=== PATIENT | male | born 1940 | race Hispanic/Latino ===

== ENCOUNTER 2017-10-04 06:58 | Day surgery (SDC) | payer OTHER ==
[2017-10-02 16:55] VITALS: BP 128/73
[2017-10-02 17:15] LABS: BASOPHILS % (AUTO) 0.4 % (0.0-5.0); EOSINOPHILS % (AUTO) 3.3 % (0.0-8.0); HEMATOCRIT 44.9 % (42-54); LYMPHOCYTES % (AUTO) 26.8 % (21.0-51.0); MEAN CORPUSCULAR HEMOGLOBIN 31.5 pg (27.0-33.0); MEAN CORPUSCULAR HGB CONC 34.3 g/dL (32.0-36.0); MEAN CORPUSCULAR VOLUME 91.9 fL (79-99); MONOCYTES % (AUTO) 9.3 % (3.0-13.0); NEUTROPHILS % (AUTO) 60.2 % (40.0-77.0); NUCLEATED RED BLOOD CELLS 0.1 % (0.0-0.19); PLATELET COUNT (AUTO) 162 K/uL (130-400); RED BLOOD CELL COUNT(AUTO) 4.89 MIL/uL (4.50-6.20); WHITE BLOOD COUNT (AUTO) 5.1 K/uL (4.8-10.8)
[2017-10-02 17:17] LABS: APPEARANCE,URINE Clear (CLEAR); BILIRUBIN,URINE Negative (NEGATIVE); COLOR,URINE Dark Yellow (YELLOW); GLUCOSE, URINE (UA) Negative (NEGATIVE); KETONES,URINE Negative (NEGATIVE); LEUKOCYTE ESTERASE ,URINE Small (NEGATIVE); NITRATE,URINE Negative (NEGATIVE); OCCULT BLOOD,URINE Negative (NEGATIVE); PH,URINE 5.5 (5.0-8.0); PROTEIN,URINE Negative (NEGATIVE)
[2017-10-02 17:22] LABS: CREATININE 1.2 mg/dL (0.5-1.5); POTASSIUM 4.3 mmol/L (3.5-5.1)
[2017-10-02 17:24] LABS: INR 1.05 (0.85-1.15)
[2017-10-02 18:02] LABS: BACTERIA,URINE Few /HPF (None Seen); RBC,URINE None Seen /HPF (0-1)
[~2017-10-04] VITALS: Ht 186.7 cm; Wt 91.0 kg
[2017-10-04] VITALS (16 sets, daily range): BP systolic 121–166; BP diastolic 64–97
[~2017-10-04 06:58] MED LIST: ASPI-1181 PO; CILO100T PO; CLOP75TA32 PO; ESOM20CA31 PO; GENTAMICIN 80 MG/NS 100 ML PB 100 ML IV PRN; ISOS30TA6 PO; LEVO75TA10 PO; METO25TA6 PO; RANO500T3 PO; ROSU5TAB11 PO; TAMS0.4C32 PO
[2017-10-04] MEDS ORDERED: SODIUM CHLORIDE 0.9% 1000ML 1,000 ML IV ONE (08:39)
[2017-10-04] MEDS: CEFTRIAXONE SODIUM 1 GM IVP PRN ×2 (09:46→10:01)
[2017-10-04] MEDS ORDERED: GLYCOPYRROLATE 0.2 MG/ML 5 ML VIAL ONE (09:50)
[2017-10-04] MEDS ORDERED: LIDOCAINE PF 2% 5ML ABBOJECT ONE (09:50)
[2017-10-04] MEDS ORDERED: DEXAMETHASONE SOD PHOSPHATE 10MG/ML 1ML VIAL ONE (09:50)
[2017-10-04] MEDS ORDERED: ONDANSETRON HCL 4 MG/2 ML VIAL ONE (09:50)
[2017-10-04] MEDS ORDERED: PROPOFOL 10 MG/ML 20ML VIAL IV ONE (09:50)
[2017-10-04] MEDS ORDERED: FENTANYL CITRATE PF 50 MCG/1 ML 2ML VIAL ONE ×2 (09:50→11:17)
[2017-10-04] MEDS ORDERED: NEOSTIGMINE 5MG/5ML SYR IV ONE (09:50)
[2017-10-04] MEDS ORDERED: MIDAZOLAM HCL 1 MG/ML 2ML VIAL ONE (09:50)
[2017-10-04] MEDS ORDERED: MEPERIDINE-PF 25 MG/ML SYG ONE (11:54)
[2017-10-04] MEDS ORDERED: OPIUM/BELLADONNA ALKALOIDS 1 EACH SUPP.RECT RC ONE (11:54)
== END 2017-10-04 14:00 | disposition home or self-care (01) ==
LOC: DAH 06:58
PROVIDERS: ATTEND Urology
DX: N40.1 Benign prostatic hyperplasia with lower urinary tract symptoms (principal); I25.10 Atherosclerotic heart disease of native coronary artery without angina pectoris; R31.9 Hematuria, unspecified; E78.5 Hyperlipidemia, unspecified; I10 Essential (primary) hypertension; E03.9 Hypothyroidism, unspecified; N35.9 Urethral stricture, unspecified; Z88.8 Allergy status to other drugs, medicaments and biological substances; R32 Unspecified urinary incontinence; K21.9 Gastro-esophageal reflux disease without esophagitis; Z95.5 Presence of coronary angioplasty implant and graft
CPT/HCPCS: 36415; 52648; 71045; 80048; 81001; 82948 ×2; 85025; 85610; 87088; 87186; 93005; A4218; A4354; A4358; J0696; J1100; J1580; J2001; J2175; J2250; J2405; J2704; J2710; J3010 ×2; J3490; J7030 ×2

== ENCOUNTER 2017-10-08 08:21 | Emergency (ER) | payer OTHER ==
[~2017-10-08 08:21] MED LIST changes: -ASPI-1181 PO; -CLOP75TA32 PO; -GENTAMICIN 80 MG/NS 100 ML PB 100 ML IV PRN
[2017-10-08 08:56] LABS: ABG BASE EXCESS -1.9 mmol/L (-2.0-3.0); ABG HCO3 21.4 mmol/L (21.0-28.0); ABG OXYGEN SATURATION 94.1 % (95.0-99.0); ABG PCO2 33 mmHg (35-48)
[2017-10-08 09:09] LABS: BASOPHILS % (AUTO) 0.3 % (0.0-5.0); EOSINOPHILS % (AUTO) 3.2 % (0.0-8.0); HEMATOCRIT 46.9 % (42-54); MEAN CORPUSCULAR HEMOGLOBIN 31.9 pg (27.0-33.0); MEAN CORPUSCULAR HGB CONC 34.3 g/dL (32.0-36.0); MEAN CORPUSCULAR VOLUME 92.8 fL (79-99); NEUTROPHILS % (AUTO) 69.5 % (40.0-77.0); PLATELET COUNT (AUTO) 139 K/uL (130-400); RED BLOOD CELL COUNT(AUTO) 5.05 MIL/uL (4.50-6.20); RED CELL DISTRIBUTION WIDTH 12.9 % (11.0-15.5); WHITE BLOOD COUNT (AUTO) 6.1 K/uL (4.8-10.8)
[2017-10-08 09:21] LABS: CREATININE 1.2 mg/dL (0.5-1.5)
[2017-10-08 09:23] LABS: APPEARANCE,URINE Cloudy (CLEAR); BILIRUBIN,URINE Negative (NEGATIVE); COLOR,URINE Orange (YELLOW); GLUCOSE, URINE (UA) Negative (NEGATIVE); KETONES,URINE Negative (NEGATIVE); LEUKOCYTE ESTERASE ,URINE Moderate (NEGATIVE); NITRATE,URINE Negative (NEGATIVE); OCCULT BLOOD,URINE Large (NEGATIVE); PH,URINE 6.5 (5.0-8.0); PROTEIN,URINE POS 2+ (NEGATIVE)
[2017-10-08 09:27] LABS: ALBUMIN 3.3 g/dL (3.5-5.0); BILIRUBIN,TOTAL 0.7 mg/dL (0.2-1.0); TOTAL PROTEIN, SERUM 6.7 g/dL (6.0-8.3)
[2017-10-08 09:40] LABS: RBC,URINE TNTC /HPF (0-1)
[2017-10-08 09:41] LABS: BACTERIA,URINE Rare /HPF (None Seen); SQUAMOUS EPITHELIAL CELL,UR Rare /HPF (0-2)
[2017-10-08] MEDS ORDERED: ACETAMINOPHEN 325 MG TAB ONE (09:47)
== END 2017-10-08 10:41 | disposition home or self-care (01) ==
LOC: EDH 08:21
DX: R41.82 Altered mental status, unspecified (principal); E11.9 Type 2 diabetes mellitus without complications; I10 Essential (primary) hypertension; I25.810 Atherosclerosis of coronary artery bypass graft(s) without angina pectoris; Z95.1 Presence of aortocoronary bypass graft; Z88.6 Allergy status to analgesic agent; Z98.890 Other specified postprocedural states
CPT/HCPCS: 36415; 36600; 70450; 80053; 81001; 82803; 84484; 85025; 93005

== ENCOUNTER → 2017-10-10 | Outpatient (CLI) | payer BC, MEDICARE, OTHER | END | disposition home or self-care (01) | LOC: SLP 16:23 | PROVIDERS: ATTEND Family Medicine | DX: R06.83 Snoring (principal); R53.83 Other fatigue; I10 Essential (primary) hypertension; E11.9 Type 2 diabetes mellitus without complications; K21.9 Gastro-esophageal reflux disease without esophagitis | CPT/HCPCS: 95810 ==

== ENCOUNTER → 2018-01-15 | Outpatient (CLI) | payer OTHER | END | disposition home or self-care (01) | LOC: SLP 20:34 | PROVIDERS: ATTEND Family Medicine | DX: G47.30 Sleep apnea, unspecified (principal) | CPT/HCPCS: 95811 ==

== ENCOUNTER 2018-12-10 08:18 | Day surgery (SDC) | payer OTHER ==
[2018-12-10] VITALS (7 sets, daily range): BP systolic 81–150; BP diastolic 39–81
[~2018-12-10] VITALS: Ht 182.9 cm; Wt 83.5 kg
[~2018-12-10 08:18] MED LIST changes: +ASPI-555 PO; +CLON0.252 PO; +CLOP75TA32 PO; +DONE10TA43 PO; -ROSU5TAB11 PO; +ROSU5TAB12 PO; +SODIUM CHLORIDE 0.9% 1000ML 1,000 ML IV ONE; -TAMS0.4C32 PO
[2018-12-10] MEDS ORDERED: LEVO88TA7 PO (10:19)
[2018-12-10] MEDS ORDERED: PROPOFOL 1000 MG/100 ML 100 ML IV ONE (12:22)
[2018-12-10] MEDS ORDERED: EPHEDRINE SULFATE 50 MG/ML AMPULE ONE (12:28)
== END 2018-12-10 13:32 | disposition home or self-care (01) ==
LOC: ENDO 08:18 → DAH 08:18 → ENDO 13:32
PROVIDERS: ATTEND Internal Medicine
DX: K57.30 Diverticulosis of large intestine without perforation or abscess without bleeding (principal); K29.50 Unspecified chronic gastritis without bleeding; K44.9 Diaphragmatic hernia without obstruction or gangrene; K64.0 First degree hemorrhoids; K22.8 Other specified diseases of esophagus; K31.89 Other diseases of stomach and duodenum; R00.1 Bradycardia, unspecified; I10 Essential (primary) hypertension; K21.9 Gastro-esophageal reflux disease without esophagitis; E03.9 Hypothyroidism, unspecified; E78.5 Hyperlipidemia, unspecified; Z98.890 Other specified postprocedural states; Z79.82 Long term (current) use of aspirin; Z79.899 Other long term (current) drug therapy
CPT/HCPCS: 43239; 45380; 88305; 93005; A4606; J2704; J3490; J7030

== ENCOUNTER 2018-12-12 09:39 | Emergency (ER) | payer OTHER ==
[~2018-12-12 09:39] MED LIST changes: -LEVO75TA10 PO; +LEVO88TA7 PO; -SODIUM CHLORIDE 0.9% 1000ML 1,000 ML IV ONE
[2018-12-12] MEDS ORDERED: SODIUM CHLORIDE 0.9% 1000ML 1,000 ML IV ONE (09:57)
[2018-12-12 10:14] LABS: BASOPHILS % (AUTO) 0.4 % (0.0-5.0); EOSINOPHILS % (AUTO) 2.7 % (0.0-8.0); LYMPHOCYTES % (AUTO) 24.6 % (21.0-51.0); MEAN CORPUSCULAR HEMOGLOBIN 31.3 pg (27.0-33.0); MEAN CORPUSCULAR HGB CONC 34.3 g/dL (32.0-36.0); MEAN CORPUSCULAR VOLUME 91.2 fL (79-99); MONOCYTES % (AUTO) 11.5 % (3.0-13.0); NEUTROPHILS % (AUTO) 60.8 % (40.0-77.0); PLATELET COUNT (AUTO) 121 K/uL (130-400); RED BLOOD CELL COUNT(AUTO) 5.05 MIL/uL (4.50-6.20); RED CELL DISTRIBUTION WIDTH 13.2 % (11.0-15.5); WHITE BLOOD COUNT (AUTO) 5.1 K/uL (4.8-10.8)
[2018-12-12 10:23] LABS: CREATININE 1.4 mg/dL (0.5-1.5); POTASSIUM 3.5 mmol/L (3.5-5.1)
[2018-12-12 10:27] LABS: ALBUMIN 3.3 g/dL (3.5-5.0); TOTAL PROTEIN, SERUM 6.7 g/dL (6.0-8.3)
== END 2018-12-12 11:25 | disposition home or self-care (01) ==
LOC: EDH 09:39
DX: E86.0 Dehydration (principal); E11.9 Type 2 diabetes mellitus without complications; E78.5 Hyperlipidemia, unspecified; I10 Essential (primary) hypertension; I25.810 Atherosclerosis of coronary artery bypass graft(s) without angina pectoris; Z88.6 Allergy status to analgesic agent
CPT/HCPCS: 36415; 80053; 83690; 85025; 96360; 99284; J7030

== ENCOUNTER → 2018-12-26 | Outpatient (CLI) | payer OTHER | END | disposition home or self-care (01) | LOC: RAH 07:51 | PROVIDERS: ATTEND Internal Medicine Gastroenterology | DX: N28.1 Cyst of kidney, acquired (principal); K76.89 Other specified diseases of liver; Z90.49 Acquired absence of other specified parts of digestive tract | CPT/HCPCS: 76700 ==

== ENCOUNTER → 2019-02-18 | Outpatient (CLI) | payer OTHER ==
[~2019-02-18] MED LIST changes: +REGADENOSON 0.4 MG/5 ML PF SYG IVP SCH
== END | disposition home or self-care (01) ==
LOC: RAH 07:51
PROVIDERS: ATTEND Internal Medicine Cardiovascular Disease
DX: I25.10 Atherosclerotic heart disease of native coronary artery without angina pectoris (principal)
CPT/HCPCS: 78452; 93017; 96374; A9500 ×2; J2785

== ENCOUNTER → 2019-03-12 | Outpatient (CLI) | payer OTHER ==
[~2019-03-12] MED LIST changes: -REGADENOSON 0.4 MG/5 ML PF SYG IVP SCH
== END | disposition home or self-care (01) ==
LOC: SHCH 09:12
PROVIDERS: ATTEND Internal Medicine Cardiovascular Disease
DX: K55.059 Acute (reversible) ischemia of intestine, part and extent unspecified (principal); I70.0 Atherosclerosis of aorta
CPT/HCPCS: 93975

== ENCOUNTER 2019-04-08 05:52 | Day surgery (SDC) | payer OTHER ==
[2019-04-07 11:56] VITALS: BP 126/76
[2019-04-07 11:59] LABS: BASOPHILS % (AUTO) 0.4 % (0.0-5.0); EOSINOPHILS % (AUTO) 3.3 % (0.0-8.0); HEMATOCRIT 47.9 % (42-54); LYMPHOCYTES % (AUTO) 29.5 % (21.0-51.0); MEAN CORPUSCULAR HEMOGLOBIN 31.5 pg (27.0-33.0); MEAN CORPUSCULAR HGB CONC 33.8 g/dL (32.0-36.0); MEAN CORPUSCULAR VOLUME 93.2 fL (79-99); NEUTROPHILS % (AUTO) 57.8 % (40.0-77.0); NUCLEATED RED BLOOD CELLS 0.1 % (0.0-0.19); PLATELET COUNT (AUTO) 123 K/uL (130-400); RED BLOOD CELL COUNT(AUTO) 5.14 MIL/uL (4.50-6.20); RED CELL DISTRIBUTION WIDTH 12.4 % (11.0-15.5); WHITE BLOOD COUNT (AUTO) 4.7 K/uL (4.8-10.8)
[2019-04-07 12:01] LABS: APPEARANCE,URINE Clear (CLEAR); BILIRUBIN,URINE Negative (NEGATIVE); COLOR,URINE Dark Yellow (YELLOW); GLUCOSE, URINE (UA) Negative (NEGATIVE); KETONES,URINE Trace mg/dL (NEGATIVE); LEUKOCYTE ESTERASE ,URINE Trace (NEGATIVE); NITRATE,URINE Negative (NEGATIVE); OCCULT BLOOD,URINE Negative (NEGATIVE); PROTEIN,URINE Negative (NEGATIVE)
[2019-04-07 12:10] LABS: CREATININE 0.9 mg/dL (0.5-1.5); POTASSIUM 4.1 mmol/L (3.5-5.1)
[2019-04-07 12:11] LABS: INR 1.04 (0.85-1.15); PARTIAL THROMBOPLASTIN TIME 26.7 SEC (26.3-35.5); PROTHROMBIN TIME 10.9 SEC (9.6-11.6)
[2019-04-07 12:25] LABS: BACTERIA,URINE Rare /HPF (None Seen); RBC,URINE 0-1 /HPF (0-1); SQUAMOUS EPITHELIAL CELL,UR Rare /HPF (0-2); WBC,URINE 0-1 /HPF (0-1)
--- NOTE | 2019-04-07 14:15 | NUR ---
RE: ABNORMAL LABS REPORTED ABNORMAL LABS PLT 123, WBC 4.7, URINE LEUKEST TRACE. NO NEW ORDERS RECEIVED.
[~2019-04-08] VITALS: Ht 185.4 cm; Wt 86.1 kg
[2019-04-08] VITALS (11 sets, daily range): BP systolic 103–137; BP diastolic 58–80
[~2019-04-08 05:52] MED LIST changes: -ESOM20CA31 PO; -ISOS30TA6 PO; +PANT40TA25 PO; -RANO500T3 PO
[2019-04-08] MEDS ORDERED: SODIUM CHLORIDE 0.9% 1000ML 1,000 ML IV ONE (06:08)
[2019-04-08] MEDS ORDERED: NITROGLYCERIN 5 MG/ML 10 ML VIAL IV ONE (07:00)
[2019-04-08] MEDS ORDERED: HEPARIN SODIUM 1000UNIT/ML 10ML VIAL ONE (07:00)
[2019-04-08] MEDS ORDERED: LIDOCAINE HCL 2% 20ML ONE (07:00)
[2019-04-08] MEDS ORDERED: IODIXANOL 320 MG/ML 100 ML VIAL ONE (07:00)
[2019-04-08] MEDS ORDERED: SODIUM BICARB 50MEQ 50ML VIAL ONE (07:00)
[2019-04-08] MEDS ORDERED: MEPERIDINE-PF 25 MG/ML SYG ONE ×2 (07:09→07:31)
[2019-04-08] MEDS ORDERED: MIDAZOLAM HCL 1 MG/ML 2ML VIAL ONE ×2 (07:09→07:31)
[2019-04-08] MEDS ORDERED: IOHEXOL 350 MG/ML 100ML INFUS..BTL IV ONE ×2 (07:20→07:58)
[2019-04-08] MEDS ORDERED: ATROPINE SULFATE 0.1 MG/ML 10 ML SYG IVP ONE (07:31)
[2019-04-08] MEDS ORDERED: ACETAMINOPHEN-CODEINE 300/30MG TAB PO PRN ×2 (08:30)
[2019-04-08] MEDS ORDERED: SODIUM CHLORIDE 0.9% 1000ML 1,000 ML IV SCH (08:30)
--- NOTE | 2019-04-08 13:00 | NUR ---
Pt discharged home. Tolerating fluids/solids well, ambulating well, voided good amount prior to discharge. Pt denies any severe pain, nausea or dizziness. Right groin remains soft, non-tender, dressing remains clean, dry, and intact. Pt instructed in routine and emergency care of cath site. Pt and spouse verbalized understanding. Pt and family report no further questions at this time. Pt reminded to stop taking taking Metoprolol.
== END 2019-04-08 13:00 | disposition home or self-care (01) ==
LOC: DAH 05:52
PROVIDERS: ATTEND Internal Medicine Cardiovascular Disease
DX: I25.10 Atherosclerotic heart disease of native coronary artery without angina pectoris (principal); I77.4 Celiac artery compression syndrome; E03.9 Hypothyroidism, unspecified; I10 Essential (primary) hypertension; E78.5 Hyperlipidemia, unspecified; Z88.8 Allergy status to other drugs, medicaments and biological substances; Z79.899 Other long term (current) drug therapy; Z79.82 Long term (current) use of aspirin; Z95.1 Presence of aortocoronary bypass graft; Z98.890 Other specified postprocedural states; Z82.49 Family history of ischemic heart disease and other diseases of the circulatory system; Z83.3 Family history of diabetes mellitus; Z79.01 Long term (current) use of anticoagulants
CPT/HCPCS: 36245 ×2; 36415; 71045; 75726 ×2; 80048; 81001; 85025; 85610; 85730; 93005; 93459; A4215; A4216; A4221; A4222; A4223 ×3; A4606; A4663; C1760; C1769; C1894; J0461; J1644 ×2; J2175; J2250; J3490 ×3; J7030; Q9965; Q9967 ×2; 93455; 99156; 99157

== ENCOUNTER → 2019-07-01 | Outpatient (CLI) | payer OTHER ==
[~2019-07-01] MED LIST changes: -METO25TA6 PO
== END | disposition home or self-care (01) ==
LOC: RAH 07:58
PROVIDERS: ATTEND Internal Medicine Gastroenterology
DX: N28.1 Cyst of kidney, acquired (principal); I70.0 Atherosclerosis of aorta; K82.8 Other specified diseases of gallbladder
CPT/HCPCS: 76700

== ENCOUNTER → 2019-07-15 | Outpatient (CLI) | payer OTHER | END | disposition home or self-care (01) | LOC: SHCH 14:29 | PROVIDERS: ATTEND Internal Medicine Cardiovascular Disease | DX: R01.1 Cardiac murmur, unspecified (principal) | CPT/HCPCS: 93306 ==

== ENCOUNTER → 2019-09-24 | Outpatient (CLI) | payer OTHER ==
[~2019-09-24] MED LIST changes: +IOHEXOL 350 MG/ML 100ML INFUS..BTL IV ONE
== END | disposition home or self-care (01) ==
LOC: RAH 08:30
PROVIDERS: ATTEND Internal Medicine Gastroenterology
DX: N28.1 Cyst of kidney, acquired (principal); K76.0 Fatty (change of) liver, not elsewhere classified; I70.0 Atherosclerosis of aorta
CPT/HCPCS: 74170; Q9967

== ENCOUNTER 2021-02-14 05:59 | Day surgery (SDC) | payer OTHER ==
[2021-02-10 11:30] LABS: APPEARANCE,URINE Clear (CLEAR); BILIRUBIN,URINE Moderate (NEGATIVE); COLOR,URINE Dark Yellow (YELLOW); GLUCOSE, URINE (UA) Negative (NEGATIVE); KETONES,URINE Trace mg/dL (NEGATIVE); LEUKOCYTE ESTERASE ,URINE Small (NEGATIVE); NITRATE,URINE Negative (NEGATIVE); OCCULT BLOOD,URINE Negative (NEGATIVE); PH,URINE 5.5 (5.0-8.0); PROTEIN,URINE Trace mg/dL (NEGATIVE)
[2021-02-10 11:39] LABS: BACTERIA,URINE Rare /HPF (None Seen); RBC,URINE 0-1 /HPF (0-1); SQUAMOUS EPITHELIAL CELL,UR Rare /HPF (0-2); WBC,URINE 0-1 /HPF (0-1)
[2021-02-10 12:05] LABS: BASOPHILS % (AUTO) 0.4 % (0.0-5.0); HEMATOCRIT 47.7 % (42-54); LYMPHOCYTES % (AUTO) 32.5 % (21.0-51.0); MEAN CORPUSCULAR HGB CONC 32.5 g/dL (32.0-36.0); MEAN CORPUSCULAR VOLUME 92.4 fL (79-99); NEUTROPHILS % (AUTO) 55.7 % (40.0-77.0); PLATELET COUNT (AUTO) 158 K/uL (130-400); RED BLOOD CELL COUNT(AUTO) 5.16 MIL/uL (4.50-6.20); RED CELL DISTRIBUTION WIDTH 12.6 % (11.0-15.5); WHITE BLOOD COUNT (AUTO) 5.5 K/uL (4.8-10.8)
[2021-02-10 12:17] LABS: POTASSIUM 3.9 mmol/L (3.5-5.1)
[2021-02-10 12:19] LABS: INR 1.05 (0.85-1.15); PROTHROMBIN TIME 11.4 SEC (9.6-11.6)
[2021-02-10 12:21] LABS: PARTIAL THROMBOPLASTIN TIME 27.1 SEC (26.3-35.5)
[~2021-02-14] VITALS: Ht 182.9 cm; Wt 79.2 kg
[2021-02-14] VITALS (11 sets, daily range): BP systolic 98–138; BP diastolic 63–92
[~2021-02-14 05:59] MED LIST changes: -ASPI-555 PO; +ASPI-556 PO; -IOHEXOL 350 MG/ML 100ML INFUS..BTL IV ONE; +MELA10CA2 PO; +MEMA10TA11 PO; -PANT40TA25 PO; +PANT40TA54 PO
[2021-02-14] MEDS ORDERED: HEPARIN 10,000 UNIT/10ML (1,000 UNIT/ML) VIAL ONE (07:14)
[2021-02-14] MEDS ORDERED: IODIXANOL 320 MG/ML 100 ML VIAL ONE (07:14)
[2021-02-14] MEDS ORDERED: NITROGLYCERIN 2 MG VIAL IV ONE (07:14)
[2021-02-14] MEDS ORDERED: SODIUM BICARB 50MEQ 50ML VIAL 50 ML ONE (07:14)
[2021-02-14] MEDS ORDERED: LIDOCAINE HCL 400MG/20ML VIAL ONE (07:14)
[2021-02-14] MEDS ORDERED: 0.9%NACL 1000ML 1,000 ML IV ONE (07:30)
[2021-02-14] MEDS ORDERED: MEPERIDINE-PF 25 MG/ML SYG ONE (07:34)
[2021-02-14] MEDS ORDERED: MIDAZOLAM HCL 1 MG/ML 2ML VIAL ONE (07:34)
[2021-02-14] MEDS ORDERED: 0.9%NACL 1000ML 1,000 ML IV SCH (10:00)
== END 2021-02-14 15:40 | disposition home or self-care (01) ==
LOC: DAHIP 05:59 → DAH 05:59 → UNDOADMIN 05:59 → DAH 15:40
PROVIDERS: ATTEND Internal Medicine Cardiovascular Disease
DX: I74.5 Embolism and thrombosis of iliac artery (principal); I73.9 Peripheral vascular disease, unspecified; I72.3 Aneurysm of iliac artery; I25.10 Atherosclerotic heart disease of native coronary artery without angina pectoris; I10 Essential (primary) hypertension; E78.5 Hyperlipidemia, unspecified; E03.9 Hypothyroidism, unspecified; Z98.890 Other specified postprocedural states; Z79.82 Long term (current) use of aspirin; Z79.899 Other long term (current) drug therapy; Z95.1 Presence of aortocoronary bypass graft; Z79.01 Long term (current) use of anticoagulants
CPT/HCPCS: 36415 ×2; 37221; 37242; 71045; 75716; 80048; 81001; 85025; 85347; 85610; 85730; 86850 ×2; 86900 ×2; 86901 ×2; 86923; 93005; A4215; A4216; A4221; A4222; A4223 ×3; A4606; A4663; C1725; C1760; C1769 ×3; C1770 ×2; C1874 ×2; C1887 ×3; C1893; C1894 ×3; J1644 ×2; J2175; J2250; J3490 ×3; J7030; Q9967; 99156; 99157

== ENCOUNTER → 2021-06-09 | Outpatient (CLI) | payer OTHER ==
[~2021-06-09] MED LIST changes: +ALBUTEROL IH; +BENZ-70 PO; +CEFT1VIA14 IV; +ESCI5TAB16 PO; +FLUT15.845 NS; +FLUTICASONE NASAL; +TAMS-1 PO
[2021-06-09 15:30] LABS: CREATININE 0.8 mg/dL (0.5-1.5)
== END | disposition home or self-care (01) ==
LOC: LAB 14:32
PROVIDERS: ATTEND Internal Medicine Cardiovascular Disease
DX: I10 Essential (primary) hypertension (principal)
CPT/HCPCS: 36415; 82565; 84520

== ENCOUNTER → 2021-06-20 | Outpatient (CLI) | payer OTHER ==
[~2021-06-20] MED LIST changes: +IOHEXOL 350 MG/ML 100ML INFUS..BTL IV ONE
== END | disposition home or self-care (01) ==
LOC: RAH 06-13 08:53
PROVIDERS: ATTEND Internal Medicine Cardiovascular Disease
DX: I72.3 Aneurysm of iliac artery (principal); I77.811 Abdominal aortic ectasia; N28.1 Cyst of kidney, acquired; K57.90 Diverticulosis of intestine, part unspecified, without perforation or abscess without bleeding; Z90.49 Acquired absence of other specified parts of digestive tract; Z98.890 Other specified postprocedural states
CPT/HCPCS: 74174; Q9967

== ENCOUNTER → 2021-08-05 | Outpatient (CLI) | payer OTHER ==
[~2021-08-05] MED LIST changes: -IOHEXOL 350 MG/ML 100ML INFUS..BTL IV ONE; +IOHEXOL-350 50ML VIAL IV ONE
== END | disposition home or self-care (01) ==
LOC: RAH 08:46
PROVIDERS: ATTEND Internal Medicine Cardiovascular Disease
DX: I72.3 Aneurysm of iliac artery (principal); I73.9 Peripheral vascular disease, unspecified; K44.9 Diaphragmatic hernia without obstruction or gangrene; M47.815 Spondylosis without myelopathy or radiculopathy, thoracolumbar region; K57.30 Diverticulosis of large intestine without perforation or abscess without bleeding
CPT/HCPCS: 75635; Q9967

== ENCOUNTER 2021-09-10 04:22 | Inpatient (IN) | payer OTHER ==
[~2021-09-10] VITALS: Ht 182.9 cm; Wt 74.3 kg
[~2021-09-10 04:22] MED LIST changes: -IOHEXOL-350 50ML VIAL IV ONE
[2021-09-10] MEDS ORDERED: PANTOPRAZOLE 40 MG/VIAL ONE (04:44)
[2021-09-10 04:54] LABS: BASOPHILS % (AUTO) 0.3 % (0.0-5.0); HEMATOCRIT 38.5 % (42-54); LYMPHOCYTES % (AUTO) 18.8 % (21.0-51.0); MEAN CORPUSCULAR HEMOGLOBIN 29.7 pg (27.0-33.0); MEAN CORPUSCULAR HGB CONC 31.7 g/dL (32.0-36.0); MEAN CORPUSCULAR VOLUME 93.7 fL (79-99); NEUTROPHILS % (AUTO) 75.2 % (40.0-77.0); PLATELET COUNT (AUTO) 193 K/uL (130-400); RED BLOOD CELL COUNT(AUTO) 4.11 MIL/uL (4.50-6.20); RED CELL DISTRIBUTION WIDTH 11.6 % (11.0-15.5); WHITE BLOOD COUNT (AUTO) 6.8 K/uL (4.8-10.8)
[2021-09-10] MEDS ORDERED: PANTOPRAZOLE 40 MG/VIAL IVP ONE ×2 (05:00→06:30)
[2021-09-10] MEDS ORDERED: 0.9%NACL 1000ML 1,000 ML IV ONE (05:00)
[2021-09-10] MEDS ORDERED: PANTOPRAZOLE 40MG INJ 80 MG in 0.9%NACL 100ML 100 ML IVP SCH (05:00)
[2021-09-10 05:04] LABS: OCCULT BLOOD,GASTRIC FLUID POSITIVE (NEGATIVE)
[2021-09-10 05:06] LABS: INR 1.13 (0.85-1.15); PROTHROMBIN TIME 12.2 SEC (9.6-11.6)
[2021-09-10 05:08] LABS: PARTIAL THROMBOPLASTIN TIME 22.5 SEC (26.3-35.5)
[2021-09-10 05:13] LABS: CREATININE 0.9 mg/dL (0.5-1.5); POTASSIUM 5.5 mmol/L (3.5-5.1)
[2021-09-10 05:20] LABS: BILIRUBIN,TOTAL 0.5 mg/dL (0.2-1.0); TOTAL PROTEIN, SERUM 6.1 g/dL (6.0-8.3)
[2021-09-10] MEDS ORDERED: ACETAMINOPHEN 325 MG TAB PO PRN (06:30)
[2021-09-10] MEDS ORDERED: ONDANSETRON 4MG INJ IVP PRN (06:30)
[2021-09-10] MEDS ORDERED: MORPHINE 2 MG SYG IVP PRN (06:30)
[2021-09-10] MEDS: PANTOPRAZOLE 40MG INJ 80 MG in 0.9%NACL 100ML 100 ML IVP SCH ×2 (06:30→22:26)
[2021-09-10] MEDS ORDERED: ACETAMINOPHEN 650 MG SUPPOSITORY RC PRN (06:30)
[2021-09-10 06:42] LABS: HEMATOCRIT 32.5 % (42-54)
[2021-09-10] MEDS: 0.9%NACL 1000ML 1,000 ML IV SCH ×2 (08:45→22:25)
[2021-09-10] MEDS ORDERED: IPRATROPIUM 0.5 MG/2.5 ML INH IH ONE (10:51)
[2021-09-10] MEDS: IPRATROPIUM 0.5 MG/2.5 ML INH IH SCH ×3 (11:05→23:21)
[2021-09-10 12:49] LABS: HEMATOCRIT 34.2 % (42-54)
[2021-09-10 18:31] LABS: HEMATOCRIT 35.3 % (42-54)
[2021-09-10] MEDS: INSULIN LISPRO 100 UNIT/ML 3ML SQ SCH ×2 (21:00→22:17)
[2021-09-10] MEDS: PANTOPRAZOLE 40 MG/VIAL IVP SCH (21:29)
[2021-09-11 01:05] LABS: HEMATOCRIT 32.6 % (42-54)
[2021-09-11] MEDS: 0.9%NACL 1000ML 1,000 ML IV SCH (02:30)
[2021-09-11] MEDS: PANTOPRAZOLE 40MG INJ 80 MG in 0.9%NACL 100ML 100 ML IVP SCH (02:30)
[2021-09-11] MEDS ORDERED: DEXTROSE 50%-WATER 50 ML DISP.SYRIN IV ONE (04:17)
[2021-09-11] MEDS: IPRATROPIUM 0.5 MG/2.5 ML INH IH SCH ×4 (06:18→23:49)
[2021-09-11 06:33] LABS: BASOPHILS % (AUTO) 0.4 % (0.0-5.0); EOSINOPHILS % (AUTO) 1.6 % (0.0-8.0); HEMATOCRIT 31.2 % (42-54); LYMPHOCYTES % (AUTO) 28.5 % (21.0-51.0); MEAN CORPUSCULAR HEMOGLOBIN 29.8 pg (27.0-33.0); MEAN CORPUSCULAR HGB CONC 32.4 g/dL (32.0-36.0); MONOCYTES % (AUTO) 8.1 % (3.0-13.0); NEUTROPHILS % (AUTO) 60.3 % (40.0-77.0); PLATELET COUNT (AUTO) 148 K/uL (130-400); RED BLOOD CELL COUNT(AUTO) 3.39 MIL/uL (4.50-6.20); RED CELL DISTRIBUTION WIDTH 11.9 % (11.0-15.5); WHITE BLOOD COUNT (AUTO) 4.5 K/uL (4.8-10.8)
[2021-09-11 06:50] LABS: ALBUMIN 2.8 g/dL (3.5-5.0); BILIRUBIN,TOTAL 0.6 mg/dL (0.2-1.0); CREATININE 0.8 mg/dL (0.5-1.5); MAGNESIUM 1.9 mg/dL (1.80-2.40); PHOSPHORUS 2.1 mg/dL (2.5-4.9); POTASSIUM 3.4 mmol/L (3.5-5.1)
[2021-09-11] MEDS: INSULIN LISPRO 100 UNIT/ML 3ML SQ SCH ×4 (07:30→21:00)
[2021-09-11] MEDS: PANTOPRAZOLE 40 MG/VIAL IVP SCH ×3 (07:37→20:37)
[2021-09-11] MEDS ORDERED: GLUCAGON 1MG KIT 1 MG ML IM PRN (08:00)
[2021-09-11] MEDS: DEXTROSE 50%-WATER 50 ML DISP.SYRIN IV PRN (08:20)
[2021-09-11] MEDS ORDERED: MAGNESIUM 2GM PREMIX 50ML 50 ML IV PRN ×2 (09:00→19:30)
[2021-09-11] MEDS: DEXTROSE 5%-WATER 1,000 ML IV SCH (09:19)
[2021-09-11 13:50] LABS: HEMATOCRIT 34.4 % (42-54)
[2021-09-11] MEDS: POTASSIUM CHLORIDE 10MEQ/100ML 100 ML IV PRN (15:02)
[2021-09-11] MEDS ORDERED: KCL 20 MEQ ERTAB PO PRN (19:30)
[2021-09-11 19:40] LABS: HEMATOCRIT 30.2 % (42-54)
[2021-09-11 20:05] VITALS: BP 145/94
[2021-09-11 23:30] VITALS: BP 126/68
[2021-09-12] VITALS (20 sets, daily range): BP systolic 105–157; BP diastolic 56–91
[2021-09-12 01:28] LABS: HEMATOCRIT 31.1 % (42-54)
[2021-09-12 04:20] LABS: BASOPHILS % (AUTO) 0.4 % (0.0-5.0); EOSINOPHILS % (AUTO) 1.7 % (0.0-8.0); HEMATOCRIT 30.5 % (42-54); LYMPHOCYTES % (AUTO) 31.2 % (21.0-51.0); MEAN CORPUSCULAR HEMOGLOBIN 30.5 pg (27.0-33.0); MEAN CORPUSCULAR HGB CONC 33.4 g/dL (32.0-36.0); MEAN CORPUSCULAR VOLUME 91.3 fL (79-99); MONOCYTES % (AUTO) 7.1 % (3.0-13.0); NEUTROPHILS % (AUTO) 58.5 % (40.0-77.0); PLATELET COUNT (AUTO) 158 K/uL (130-400); RED BLOOD CELL COUNT(AUTO) 3.34 MIL/uL (4.50-6.20); RED CELL DISTRIBUTION WIDTH 11.9 % (11.0-15.5); WHITE BLOOD COUNT (AUTO) 5.2 K/uL (4.8-10.8)
[2021-09-12 04:30] LABS: INR 1.18 (0.85-1.15); PROTHROMBIN TIME 12.7 SEC (9.6-11.6)
[2021-09-12 04:52] LABS: ALBUMIN 2.9 g/dL (3.5-5.0); BILIRUBIN,TOTAL 0.8 mg/dL (0.2-1.0); CREATININE 0.8 mg/dL (0.5-1.5); MAGNESIUM 1.8 mg/dL (1.80-2.40); POTASSIUM 3.4 mmol/L (3.5-5.1); TOTAL PROTEIN, SERUM 6.1 g/dL (6.0-8.3)
[2021-09-12] MEDS: POTASSIUM CHLORIDE 10MEQ/100ML 100 ML IV PRN ×2 (06:31→12:19)
[2021-09-12] MEDS: DEXTROSE 5%-WATER 1,000 ML IV SCH (06:31)
[2021-09-12] MEDS: IPRATROPIUM 0.5 MG/2.5 ML INH IH SCH ×4 (06:37→23:43)
[2021-09-12] MEDS: INSULIN LISPRO 100 UNIT/ML 3ML SQ SCH ×4 (07:30→21:00)
[2021-09-12 09:22] LABS: HEMATOCRIT 29.8 % (42-54)
[2021-09-12] MEDS: PANTOPRAZOLE 40 MG/VIAL IVP SCH ×2 (09:47→20:21)
[2021-09-12] MEDS ORDERED: PHENYLEPHRINE HCL 10 MG/ML 1ML VIAL IV ONE (10:39)
[2021-09-12] MEDS ORDERED: PROPOFOL 10 MG/ML 20ML VIAL IV ONE (10:39)
[2021-09-12 15:35] LABS: HEMATOCRIT 29.3 % (42-54)
[2021-09-12] MEDS ORDERED: PEG 3350/NA SULF,BICARB,CL/KCL 4000 ML SOLN PO SCH (18:30)
[2021-09-12] MEDS ORDERED: PHARMACY COMMUNICATION MISC SCH (18:30)
[2021-09-12] MEDS ORDERED: LACTULOSE 20 GM/30 ML UDCUP PR SCH (19:00)
[2021-09-12] MEDS ORDERED: MAGNESIUM CITRATE 296 ML SOLUTION PO ONE (20:00)
[2021-09-12] MEDS ORDERED: CLONAZEPAM 0.5 MG TABLET PEG SCH (21:00)
[2021-09-13] VITALS: BP 131/81
[2021-09-13 03:49] LABS: BASOPHILS % (AUTO) 0.1 % (0.0-5.0); EOSINOPHILS % (AUTO) 1.3 % (0.0-8.0); HEMATOCRIT 31.2 % (42-54); MEAN CORPUSCULAR HEMOGLOBIN 30.1 pg (27.0-33.0); MEAN CORPUSCULAR HGB CONC 33.3 g/dL (32.0-36.0); MEAN CORPUSCULAR VOLUME 90.2 fL (79-99); MONOCYTES % (AUTO) 8.5 % (3.0-13.0); NEUTROPHILS % (AUTO) 73.5 % (40.0-77.0); PLATELET COUNT (AUTO) 160 K/uL (130-400); RED BLOOD CELL COUNT(AUTO) 3.46 MIL/uL (4.50-6.20); WHITE BLOOD COUNT (AUTO) 6.8 K/uL (4.8-10.8)
[2021-09-13 04:00] VITALS: BP 123/80
[2021-09-13 04:17] LABS: ALBUMIN 2.9 g/dL (3.5-5.0); BILIRUBIN,TOTAL 0.4 mg/dL (0.2-1.0); CREATININE 0.8 mg/dL (0.5-1.5); MAGNESIUM 2.5 mg/dL (1.80-2.40); PHOSPHORUS 3.2 mg/dL (2.5-4.9); POTASSIUM 3.6 mmol/L (3.5-5.1)
[2021-09-13] MEDS: IPRATROPIUM 0.5 MG/2.5 ML INH IH SCH ×4 (06:52→23:26)
[2021-09-13] MEDS: INSULIN LISPRO 100 UNIT/ML 3ML SQ SCH ×4 (07:30→21:00)
[2021-09-13 07:35] VITALS: BP 125/78
[2021-09-13] MEDS ORDERED: PEG 3350/NA SULF,BICARB,CL/KCL 4000 ML SOLN PO SCH (08:18)
[2021-09-13] MEDS ORDERED: MAGNESIUM CITRATE 296 ML SOLUTION PO SCH (08:18)
[2021-09-13] MEDS ORDERED: MAGNESIUM CITRATE 296 ML SOLUTION ONE (08:31)
[2021-09-13] MEDS: PANTOPRAZOLE 40 MG/VIAL IVP SCH ×2 (08:35→22:29)
[2021-09-13 12:00] VITALS: BP 127/76
[2021-09-13] MEDS ORDERED: LACTULOSE 20 GM/30 ML UDCUP PO SCH (12:00)
[2021-09-13] MEDS ORDERED: PHARMACY COMMUNICATION MISC SCH (13:00)
[2021-09-13] MEDS: ERYTHROMYCIN LACTOBIONATE 250 MG in 0.9%NACL 100ML 100 ML IV SCH ×2 (13:22→19:32)
[2021-09-13] MEDS ORDERED: COMPOUND IV MISC 1 EACH IVSOLN MISC PRN (13:30)
[2021-09-13 16:00] VITALS: BP 127/76
[2021-09-13 20:13] VITALS: BP 154/93
[2021-09-13] MEDS: CLONAZEPAM 0.5 MG TABLET PEG PRN (22:30)
[2021-09-14] VITALS (16 sets, daily range): BP systolic 99–165; BP diastolic 59–95
[2021-09-14] MEDS ORDERED: PEG 3350/NA SULF,BICARB,CL/KCL 4000 ML SOLN ONE (00:33)
[2021-09-14] MEDS ORDERED: PEG 3350/NA SULF,BICARB,CL/KCL 4000 ML SOLN PO ONE (01:00)
[2021-09-14] MEDS ORDERED: ONDANSETRON 4MG INJ IVP ONE (01:00)
[2021-09-14 01:37] LABS: BASOPHILS % (AUTO) 0.3 % (0.0-5.0); HEMATOCRIT 29.4 % (42-54); LYMPHOCYTES % (AUTO) 8.6 % (21.0-51.0); MEAN CORPUSCULAR HEMOGLOBIN 30.6 pg (27.0-33.0); MEAN CORPUSCULAR VOLUME 92.7 fL (79-99); MONOCYTES % (AUTO) 3.7 % (3.0-13.0); PLATELET COUNT (AUTO) 188 K/uL (130-400); RED BLOOD CELL COUNT(AUTO) 3.17 MIL/uL (4.50-6.20); RED CELL DISTRIBUTION WIDTH 12.4 % (11.0-15.5); WHITE BLOOD COUNT (AUTO) 7.3 K/uL (4.8-10.8)
[2021-09-14 01:51] LABS: ALBUMIN 2.8 g/dL (3.5-5.0); BILIRUBIN,TOTAL 0.4 mg/dL (0.2-1.0); CREATININE 0.6 mg/dL (0.5-1.5); POTASSIUM 3.1 mmol/L (3.5-5.1); TOTAL PROTEIN, SERUM 5.8 g/dL (6.0-8.3)
[2021-09-14] MEDS: POTASSIUM CHLORIDE 10% ELIXIR 20 MEQ/15 ML UDCUP PO PRN ×2 (02:26→14:35)
[2021-09-14] MEDS: POTASSIUM CHLORIDE 10MEQ/100ML 100 ML IV PRN (04:27)
[2021-09-14] MEDS: LIDOCAINE HCL-MPF 1% 2ML VIAL IV PRN (04:27)
[2021-09-14] MEDS: IPRATROPIUM 0.5 MG/2.5 ML INH IH SCH ×4 (06:54→23:52)
[2021-09-14] MEDS: INSULIN LISPRO 100 UNIT/ML 3ML SQ SCH ×4 (07:30→21:00)
[2021-09-14] MEDS: PANTOPRAZOLE 40 MG/VIAL IVP SCH ×2 (08:46→21:01)
[2021-09-14] MEDS ORDERED: LIDOCAINE HCL 1% 20 ML VIAL ONE (10:09)
[2021-09-14] MEDS ORDERED: PROPOFOL 10 MG/ML 20ML VIAL IV ONE (10:09)
[2021-09-14] MEDS ORDERED: LACTULOSE 20 GM/30 ML UDCUP PR SCH ×4 (12:00→16:00)
[2021-09-14] MEDS ORDERED: PEG 3350/NA SULF,BICARB,CL/KCL 4000 ML SOLN PO SCH (14:00)
[2021-09-14] MEDS ORDERED: LACTULOSE 20 GM/30 ML UDCUP PO SCH ×2 (14:00→16:00)
[2021-09-14] MEDS: CLONAZEPAM 0.5 MG TABLET PEG PRN (21:24)
[2021-09-15] MEDS: DEXTROSE 5 %-0.45 % NACL 1,000 ML IV SCH ×2 (02:02→17:19)
[2021-09-15 04:29] VITALS: BP 133/83
[2021-09-15 05:35] LABS: BASOPHILS % (AUTO) 0.1 % (0.0-5.0); EOSINOPHILS % (AUTO) 0.3 % (0.0-8.0); HEMATOCRIT 27.7 % (42-54); MEAN CORPUSCULAR HEMOGLOBIN 30.6 pg (27.0-33.0); MEAN CORPUSCULAR HGB CONC 33.6 g/dL (32.0-36.0); MEAN CORPUSCULAR VOLUME 91.1 fL (79-99); MONOCYTES % (AUTO) 4.6 % (3.0-13.0); NEUTROPHILS % (AUTO) 86.4 % (40.0-77.0); PLATELET COUNT (AUTO) 155 K/uL (130-400); RED BLOOD CELL COUNT(AUTO) 3.04 MIL/uL (4.50-6.20); RED CELL DISTRIBUTION WIDTH 12.8 % (11.0-15.5); WHITE BLOOD COUNT (AUTO) 7.1 K/uL (4.8-10.8)
[2021-09-15 06:01] LABS: ALBUMIN 2.7 g/dL (3.5-5.0); BILIRUBIN,TOTAL 0.5 mg/dL (0.2-1.0); CREATININE 0.6 mg/dL (0.5-1.5); TOTAL PROTEIN, SERUM 5.5 g/dL (6.0-8.3)
[2021-09-15 06:11] LABS: POTASSIUM 2.9 mmol/L (3.5-5.1)
[2021-09-15] MEDS: INSULIN LISPRO 100 UNIT/ML 3ML SQ SCH ×4 (06:25→20:37)
[2021-09-15] MEDS: POTASSIUM CHLORIDE 10MEQ/100ML 100 ML IV PRN (06:25)
[2021-09-15] MEDS: IPRATROPIUM 0.5 MG/2.5 ML INH IH SCH ×4 (06:59→23:26)
[2021-09-15 07:16] VITALS: BP 147/76
[2021-09-15] MEDS: PANTOPRAZOLE 40 MG/VIAL IVP SCH ×2 (08:37→21:40)
[2021-09-15] MEDS: MAGNESIUM CITRATE 296 ML SOLUTION PO SCH (10:05)
[2021-09-15] MEDS: LACTULOSE 20 GM/30 ML UDCUP PO SCH (10:05)
[2021-09-15] MEDS: POTASSIUM CHLORIDE 10% ELIXIR 20 MEQ/15 ML UDCUP PO PRN ×2 (10:07→13:18)
[2021-09-15 12:00] VITALS: BP 128/66
[2021-09-15] MEDS ORDERED: PEG 3350/NA SULF,BICARB,CL/KCL 4000 ML SOLN PO SCH (14:00)
[2021-09-15 16:00] VITALS: BP 147/91
[2021-09-15 19:00] VITALS: BP 147/77
[2021-09-15] MEDS: LIDOCAINE HCL-MPF 1% 2ML VIAL IV PRN (19:56)
[2021-09-15] MEDS: POTASSIUM CHLORIDE 20MEQ/100ML 100 ML IV PRN (19:56)
[2021-09-15] MEDS: CLONAZEPAM 0.5 MG TABLET PEG PRN (21:54)
[2021-09-15 23:59] VITALS: BP 131/77
[2021-09-16] MEDS: POTASSIUM CHLORIDE 20MEQ/100ML 100 ML IV PRN (01:29)
[2021-09-16] MEDS: LIDOCAINE HCL-MPF 1% 2ML VIAL IV PRN (01:29)
[2021-09-16 04:00] VITALS: BP 159/85
[2021-09-16 05:04] LABS: BASOPHILS % (AUTO) 0.1 % (0.0-5.0); EOSINOPHILS % (AUTO) 0.6 % (0.0-8.0); LYMPHOCYTES % (AUTO) 11.5 % (21.0-51.0); MEAN CORPUSCULAR HEMOGLOBIN 29.9 pg (27.0-33.0); MEAN CORPUSCULAR HGB CONC 32.4 g/dL (32.0-36.0); MEAN CORPUSCULAR VOLUME 92.4 fL (79-99); MONOCYTES % (AUTO) 6.5 % (3.0-13.0); NEUTROPHILS % (AUTO) 80.9 % (40.0-77.0); PLATELET COUNT (AUTO) 163 K/uL (130-400); RED BLOOD CELL COUNT(AUTO) 3.14 MIL/uL (4.50-6.20); RED CELL DISTRIBUTION WIDTH 13.2 % (11.0-15.5); WHITE BLOOD COUNT (AUTO) 7.1 K/uL (4.8-10.8)
[2021-09-16 05:12] LABS: ALBUMIN 2.5 g/dL (3.5-5.0); BILIRUBIN,TOTAL 0.3 mg/dL (0.2-1.0); CREATININE 0.6 mg/dL (0.5-1.5); MAGNESIUM 1.8 mg/dL (1.80-2.40); TOTAL PROTEIN, SERUM 5.5 g/dL (6.0-8.3)
[2021-09-16] MEDS: INSULIN LISPRO 100 UNIT/ML 3ML SQ SCH ×4 (06:05→21:00)
[2021-09-16] MEDS: IPRATROPIUM 0.5 MG/2.5 ML INH IH SCH ×3 (06:14→18:51)
[2021-09-16] MEDS: DEXTROSE 5 %-0.45 % NACL 1,000 ML IV SCH ×2 (06:14→17:39)
[2021-09-16 09:44] VITALS: BP 125/81
[2021-09-16] MEDS: PANTOPRAZOLE 40 MG/VIAL IVP SCH ×2 (09:51→22:50)
[2021-09-16] MEDS: POTASSIUM CHLORIDE 10MEQ/100ML 100 ML IV PRN (09:51)
[2021-09-16] MEDS: MAGNESIUM CITRATE 296 ML SOLUTION PO SCH (09:58)
[2021-09-16] MEDS: LACTULOSE 20 GM/30 ML UDCUP PO SCH (09:58)
[2021-09-16 12:07] LABS: CREATININE 0.7 mg/dL (0.5-1.5)
[2021-09-16 12:27] LABS: POTASSIUM 2.9 mmol/L (3.5-5.1)
[2021-09-16 13:19] VITALS: BP 123/76
[2021-09-16] MEDS: KCL 20 MEQ ERTAB PO SCH ×3 (15:14→21:00)
[2021-09-16 17:18] VITALS: BP 158/96
[2021-09-16 19:15] VITALS: BP 132/59
[2021-09-16] MEDS ORDERED: ZOSYN 3.375GM +NS 50ML IV SCH (19:30)
[2021-09-16] MEDS: 0.9% NACL 500ML IV.SOLN 500 ML IV SCH ×2 (21:01→22:00)
[2021-09-16 21:23] LABS: CREATININE 0.8 mg/dL (0.5-1.5)
[2021-09-16 21:36] LABS: HEMATOCRIT 33.3 % (42-54); MEAN CORPUSCULAR HEMOGLOBIN 31.1 pg (27.0-33.0); MEAN CORPUSCULAR HGB CONC 32.7 g/dL (32.0-36.0); MEAN CORPUSCULAR VOLUME 94.9 fL (79-99); RED BLOOD CELL COUNT(AUTO) 3.51 MIL/uL (4.50-6.20); RED CELL DISTRIBUTION WIDTH 13.4 % (11.0-15.5); WHITE BLOOD COUNT (AUTO) 7.5 K/uL (4.8-10.8)
[2021-09-16] MEDS ORDERED: LIDOCAINE HCL-MPF 1% 2ML VIAL IV PRN (22:00)
[2021-09-16] MEDS ORDERED: POTASSIUM CHLORIDE 20MEQ/100ML 100 ML IV PRN (22:00)
[2021-09-16] MEDS ORDERED: KCL 20 MEQ ERTAB PO PRN (22:00)
[2021-09-16] MEDS ORDERED: MAGNESIUM 2GM PREMIX 50ML 50 ML IV SCH (22:30)
[2021-09-16] MEDS: POTASSIUM CHLORIDE 10% ELIXIR 20 MEQ/15 ML UDCUP PO PRN (22:50)
[2021-09-16] MEDS: ATORVASTATIN 10 MG TABLET PO SCH (22:51)
[2021-09-16] MEDS: METRONIDAZOLE 500MG/100ML BAG 100 ML IVPB SCH (22:51)
[2021-09-16] MEDS: MEMANTINE HCL 5 MG TABLET PO SCH (22:51)
[2021-09-16] MEDS: DONEPEZIL HCL 5 MG TAB PO SCH (22:51)
[2021-09-16] MEDS: CLONAZEPAM 0.5 MG TABLET PEG PRN (22:51)
[2021-09-16] MEDS: 0.9%NACL 1000ML 1,000 ML IV SCH (22:55)
[2021-09-17] VITALS (18 sets, daily range): BP systolic 110–180; BP diastolic 62–107
[2021-09-17] MEDS: IPRATROPIUM 0.5 MG/2.5 ML INH IH SCH ×4 (00:25→19:21)
[2021-09-17] MEDS: ZOSYN 3.375GM +NS 50ML IV SCH ×2 (01:29→10:39)
[2021-09-17] MEDS: POTASSIUM CHLORIDE 10% ELIXIR 20 MEQ/15 ML UDCUP PO PRN (01:32)
[2021-09-17 04:56] LABS: BASOPHILS % (AUTO) 0.2 % (0.0-5.0); EOSINOPHILS % (AUTO) 1.7 % (0.0-8.0); HEMATOCRIT 28.5 % (42-54); LYMPHOCYTES % (AUTO) 14.8 % (21.0-51.0); MEAN CORPUSCULAR HEMOGLOBIN 30.6 pg (27.0-33.0); MEAN CORPUSCULAR VOLUME 92.8 fL (79-99); MONOCYTES % (AUTO) 7.7 % (3.0-13.0); NEUTROPHILS % (AUTO) 75.3 % (40.0-77.0); PLATELET COUNT (AUTO) 144 K/uL (130-400); RED BLOOD CELL COUNT(AUTO) 3.07 MIL/uL (4.50-6.20); RED CELL DISTRIBUTION WIDTH 13.2 % (11.0-15.5); WHITE BLOOD COUNT (AUTO) 5.7 K/uL (4.8-10.8)
[2021-09-17 04:58] LABS: CREATININE 0.6 mg/dL (0.5-1.5); MAGNESIUM 1.7 mg/dL (1.80-2.40); PHOSPHORUS 2.6 mg/dL (2.5-4.9); POTASSIUM 3.7 mmol/L (3.5-5.1)
[2021-09-17] MEDS: 0.9%NACL 1000ML 1,000 ML IV SCH ×2 (06:30→21:32)
[2021-09-17] MEDS: LEVOTHYROXINE 88 MCG TABLET PO SCH (06:30)
[2021-09-17] MEDS: METRONIDAZOLE 500MG/100ML BAG 100 ML IVPB SCH ×3 (06:38→21:33)
[2021-09-17] MEDS: MAGNESIUM 2GM PREMIX 50ML 50 ML IV PRN (06:41)
[2021-09-17] MEDS: INSULIN LISPRO 100 UNIT/ML 3ML SQ SCH ×3 (06:41→21:00)
[2021-09-17] MEDS: MEMANTINE HCL 5 MG TABLET PO SCH ×2 (09:00→21:33)
[2021-09-17] MEDS: CLONAZEPAM 1MG TAB PO SCH (09:00)
[2021-09-17] MEDS: LACTULOSE 20 GM/30 ML UDCUP PO SCH (10:00)
[2021-09-17] MEDS: MAGNESIUM CITRATE 296 ML SOLUTION PO SCH (10:00)
[2021-09-17] MEDS: PANTOPRAZOLE 40 MG/VIAL IVP SCH ×2 (10:41→21:32)
[2021-09-17] MEDS: DEXTROSE 50%-WATER 50 ML DISP.SYRIN IV PRN (11:49)
[2021-09-17] MEDS ORDERED: ONDANSETRON 4MG INJ ONE (15:00)
[2021-09-17] MEDS ORDERED: PROPOFOL 10 MG/ML 20ML VIAL IV ONE ×2 (15:00→18:05)
[2021-09-17] MEDS ORDERED: ROCURONIUM 10MG/1ML SYR 10 MG/ML ML ONE ×2 (15:00→16:09)
[2021-09-17] MEDS ORDERED: PHENYLEPHRINE HCL 10 MG/ML 1ML VIAL IV ONE (15:00)
[2021-09-17] MEDS ORDERED: LIDOCAINE PF 100MG/5ML (2%) SYRINGE 5ML ONE (15:00)
[2021-09-17] MEDS ORDERED: FENTANYL CITRATE PF 50 MCG/1 ML 5ML AMP IV ONE (15:01)
[2021-09-17] MEDS ORDERED: LIDOCAINE HCL 1% 20 ML VIAL ONE (15:10)
[2021-09-17] MEDS ORDERED: BUPIVACAINE/EPI/PF 0.5% 30ML VIAL IJ ONE (15:10)
[2021-09-17] MEDS ORDERED: CEFAZOLIN SODIUM 1 GM VIAL ONE (15:11)
[2021-09-17] MEDS ORDERED: ROPIVACAINE 0.5% 5MG/ML 30ML IJ ONE (15:17)
[2021-09-17] MEDS ORDERED: DEXAMETHASONE SOD PHOSPHATE 10MG/ML 1ML VIAL ONE (15:40)
[2021-09-17] MEDS ORDERED: NOREPINEPHRINE BITARTRATE 1 MG/1 ML ML IV ONE (16:18)
[2021-09-17 16:40] LABS: ABG BASE EXCESS 0.8 mmol/L (-2.0-3.0); ABG HCO3 25.5 mmol/L (21.0-28.0); ABG OXYGEN SATURATION 99.1 % (95.0-99.0); ABG PCO2 41 mmHg (35-48)
[2021-09-17] MEDS ORDERED: NEOSTIGMINE 5MG/5ML SYR IV ONE (17:54)
[2021-09-17] MEDS ORDERED: GLYCOPYRROLATE 1 MG/5 ML SYRINGE ONE (17:54)
[2021-09-17] MEDS ORDERED: FENTANYL CITRATE PF 50 MCG/1 ML 2ML VIAL ONE (17:59)
[2021-09-17] MEDS: ATORVASTATIN 10 MG TABLET PO SCH (21:33)
[2021-09-17] MEDS: DONEPEZIL HCL 5 MG TAB PO SCH (21:33)
[2021-09-17] MEDS: CLONAZEPAM 0.5 MG TABLET PEG PRN (23:03)
[2021-09-18] VITALS (42 sets, daily range): BP systolic 107–184; BP diastolic 67–106
[2021-09-18] MEDS: ZOSYN 3.375GM +NS 50ML IV SCH ×3 (01:16→16:56)
[2021-09-18] MEDS: 0.9%NACL 1000ML 1,000 ML IV SCH ×2 (01:39→11:40)
[2021-09-18] MEDS: INSULIN LISPRO 100 UNIT/ML 3ML SQ SCH ×4 (05:43→20:13)
[2021-09-18] MEDS: METRONIDAZOLE 500MG/100ML BAG 100 ML IVPB SCH ×3 (05:55→21:17)
[2021-09-18] MEDS: LEVOTHYROXINE 88 MCG TABLET PO SCH (05:55)
[2021-09-18 06:28] LABS: HEMATOCRIT 28.3 % (42-54); LYMPHOCYTES % (AUTO) 3.6 % (21.0-51.0); MEAN CORPUSCULAR HEMOGLOBIN 30.8 pg (27.0-33.0); MEAN CORPUSCULAR HGB CONC 34.6 g/dL (32.0-36.0); PLATELET COUNT (AUTO) 153 K/uL (130-400); RED BLOOD CELL COUNT(AUTO) 3.18 MIL/uL (4.50-6.20); RED CELL DISTRIBUTION WIDTH 13.3 % (11.0-15.5); WHITE BLOOD COUNT (AUTO) 7.3 K/uL (4.8-10.8)
[2021-09-18 06:46] LABS: ALBUMIN 2.2 g/dL (3.5-5.0); BILIRUBIN,TOTAL 0.6 mg/dL (0.2-1.0); CREATININE 0.6 mg/dL (0.5-1.5); MAGNESIUM 1.6 mg/dL (1.80-2.40); PHOSPHORUS 3.8 mg/dL (2.5-4.9); POTASSIUM 3.8 mmol/L (3.5-5.1); TOTAL PROTEIN, SERUM 4.9 g/dL (6.0-8.3)
[2021-09-18] MEDS: IPRATROPIUM 0.5 MG/2.5 ML INH IH SCH ×3 (06:57→19:11)
[2021-09-18] MEDS ORDERED: MAGNESIUM 2GM PREMIX 50ML 50 ML IV PRN (07:30)
[2021-09-18] MEDS: FLUCONAZOLE 400 MG/NS 200 ML 200 ML IV SCH (09:03)
[2021-09-18] MEDS: MEMANTINE HCL 5 MG TABLET PO SCH ×2 (09:04→20:17)
[2021-09-18] MEDS: CLONAZEPAM 1MG TAB PO SCH (09:04)
[2021-09-18] MEDS: PANTOPRAZOLE 40 MG/VIAL IVP SCH ×2 (09:04→20:17)
[2021-09-18] MEDS: MAGNESIUM 2GM PREMIX 50ML 50 ML IV PRN (20:16)
[2021-09-18] MEDS: DONEPEZIL HCL 5 MG TAB PO SCH (20:17)
[2021-09-18] MEDS: CLONAZEPAM 0.5 MG TABLET PEG PRN (20:18)
[2021-09-19] VITALS (17 sets, daily range): BP systolic 105–175; BP diastolic 62–90
[2021-09-19] MEDS: IPRATROPIUM 0.5 MG/2.5 ML INH IH SCH ×4 (00:11→18:16)
[2021-09-19] MEDS: ZOSYN 3.375GM +NS 50ML IV SCH ×3 (00:45→16:01)
[2021-09-19 03:36] LABS: HEMATOCRIT 25.4 % (42-54); MEAN CORPUSCULAR HEMOGLOBIN 30.4 pg (27.0-33.0); MEAN CORPUSCULAR HGB CONC 33.9 g/dL (32.0-36.0); MEAN CORPUSCULAR VOLUME 89.8 fL (79-99); RED BLOOD CELL COUNT(AUTO) 2.83 MIL/uL (4.50-6.20); RED CELL DISTRIBUTION WIDTH 13.2 % (11.0-15.5)
[2021-09-19 03:54] LABS: ALBUMIN 1.7 g/dL (3.5-5.0); BILIRUBIN,TOTAL 0.4 mg/dL (0.2-1.0); CREATININE 0.6 mg/dL (0.5-1.5); MAGNESIUM 1.8 mg/dL (1.80-2.40); PHOSPHORUS 2.9 mg/dL (2.5-4.9); TOTAL PROTEIN, SERUM 4.2 g/dL (6.0-8.3)
[2021-09-19] MEDS: MAGNESIUM 2GM PREMIX 50ML 50 ML IV PRN (04:05)
[2021-09-19] MEDS ORDERED: LIDOCAINE HCL-MPF 1% 2ML VIAL IV PRN (04:30)
[2021-09-19] MEDS: METRONIDAZOLE 500MG/100ML BAG 100 ML IVPB SCH ×3 (06:23→21:49)
[2021-09-19] MEDS: LEVOTHYROXINE 88 MCG TABLET PO SCH (06:23)
[2021-09-19] MEDS: POTASSIUM CHLORIDE 20MEQ/100ML 100 ML IV PRN ×2 (06:24→12:50)
[2021-09-19] MEDS: INSULIN LISPRO 100 UNIT/ML 3ML SQ SCH ×4 (06:38→20:35)
[2021-09-19] MEDS: PANTOPRAZOLE 40 MG/VIAL IVP SCH ×2 (08:04→20:55)
[2021-09-19] MEDS: MEMANTINE HCL 5 MG TABLET PO SCH ×2 (08:04→20:55)
[2021-09-19] MEDS: FLUCONAZOLE 400 MG/NS 200 ML 200 ML IV SCH (08:05)
[2021-09-19] MEDS: CLONAZEPAM 1MG TAB PO SCH (08:05)
[2021-09-19] MEDS: LISINOPRIL 20 MG TABLET PO SCH (10:27)
[2021-09-19] MEDS ORDERED: HYDRALAZINE 25MG TABLET PO PRN (10:30)
[2021-09-19] MEDS: 0.9%NACL 1000ML 1,000 ML IV SCH (11:32)
[2021-09-19] MEDS: DEXTROSE 50%-WATER 50 ML DISP.SYRIN IV PRN (20:56)
[2021-09-19] MEDS: CILOSTAZOL 100 MG TAB PO SCH (20:56)
[2021-09-19] MEDS: DONEPEZIL HCL 5 MG TAB PO SCH (20:56)
[2021-09-19] MEDS: CLONAZEPAM 0.5 MG TABLET PO SCH (20:56)
[2021-09-20] VITALS (7 sets, daily range): BP systolic 104–133; BP diastolic 56–79
[2021-09-20] MEDS: IPRATROPIUM 0.5 MG/2.5 ML INH IH SCH ×4 (00:05→18:44)
[2021-09-20] MEDS: ZOSYN 3.375GM +NS 50ML IV SCH ×3 (01:12→16:54)
[2021-09-20] MEDS: DEXTROSE 50%-WATER 50 ML DISP.SYRIN IV PRN (05:07)
[2021-09-20] MEDS: METRONIDAZOLE 500MG/100ML BAG 100 ML IVPB SCH ×3 (05:07→21:30)
[2021-09-20] MEDS: LEVOTHYROXINE 88 MCG TABLET PO SCH (05:07)
[2021-09-20 05:22] LABS: HEMATOCRIT 31.9 % (42-54); MEAN CORPUSCULAR HEMOGLOBIN 30.4 pg (27.0-33.0); MEAN CORPUSCULAR VOLUME 95.2 fL (79-99); RED BLOOD CELL COUNT(AUTO) 3.35 MIL/uL (4.50-6.20); RED CELL DISTRIBUTION WIDTH 13.9 % (11.0-15.5); WHITE BLOOD COUNT (AUTO) 7.8 K/uL (4.8-10.8)
[2021-09-20 05:46] LABS: CREATININE 0.6 mg/dL (0.5-1.5); MAGNESIUM 1.7 mg/dL (1.80-2.40); POTASSIUM 4.5 mmol/L (3.5-5.1)
[2021-09-20] MEDS: INSULIN LISPRO 100 UNIT/ML 3ML SQ SCH ×4 (06:00→21:00)
[2021-09-20] MEDS: 0.9%NACL 1000ML 1,000 ML IV SCH (06:00)
[2021-09-20] MEDS: FLUCONAZOLE 400 MG/NS 200 ML 200 ML IV SCH (07:24)
[2021-09-20] MEDS: CLOPIDOGREL 75MG TAB PO SCH (07:43)
[2021-09-20] MEDS: CILOSTAZOL 100 MG TAB PO SCH ×2 (07:43→21:30)
[2021-09-20] MEDS: PANTOPRAZOLE 40 MG/VIAL IVP SCH ×2 (07:44→21:29)
[2021-09-20] MEDS: ASPIRIN 81 MG EC TAB PO SCH (07:44)
[2021-09-20] MEDS: LISINOPRIL 20 MG TABLET PO SCH (07:44)
[2021-09-20] MEDS: MEMANTINE HCL 5 MG TABLET PO SCH ×2 (07:44→21:29)
[2021-09-20] MEDS: ACETYLCYSTEINE 10% 100MG/ML 4ML VIAL IH SCH (18:43)
[2021-09-20] MEDS: DONEPEZIL HCL 5 MG TAB PO SCH (21:29)
[2021-09-20] MEDS: CLONAZEPAM 0.5 MG TABLET PO SCH (21:30)
[2021-09-21] MEDS: ZOSYN 3.375GM +NS 50ML IV SCH ×3 (00:46→17:00)
[2021-09-21] MEDS: ACETYLCYSTEINE 10% 100MG/ML 4ML VIAL IH SCH ×5 (00:50→23:48)
[2021-09-21] MEDS: IPRATROPIUM 0.5 MG/2.5 ML INH IH SCH ×5 (00:51→23:48)
[2021-09-21] MEDS: 0.9%NACL 1000ML 1,000 ML IV SCH ×2 (03:32→23:32)
[2021-09-21 04:05] VITALS: BP 120/55
[2021-09-21] MEDS: LEVOTHYROXINE 88 MCG TABLET PO SCH (05:37)
[2021-09-21] MEDS: METRONIDAZOLE 500MG/100ML BAG 100 ML IVPB SCH ×3 (05:37→22:35)
[2021-09-21 06:02] LABS: BASOPHILS % (AUTO) 0.1 % (0.0-5.0); EOSINOPHILS % (AUTO) 0.5 % (0.0-8.0); HEMATOCRIT 29.9 % (42-54); MEAN CORPUSCULAR HEMOGLOBIN 30.7 pg (27.0-33.0); MEAN CORPUSCULAR HGB CONC 34.1 g/dL (32.0-36.0); MEAN CORPUSCULAR VOLUME 90.1 fL (79-99); MONOCYTES % (AUTO) 5.9 % (3.0-13.0); NEUTROPHILS % (AUTO) 87.9 % (40.0-77.0); PLATELET COUNT (AUTO) 127 K/uL (130-400); RED BLOOD CELL COUNT(AUTO) 3.32 MIL/uL (4.50-6.20); RED CELL DISTRIBUTION WIDTH 13.2 % (11.0-15.5); WHITE BLOOD COUNT (AUTO) 8.6 K/uL (4.8-10.8)
[2021-09-21 06:06] LABS: ALBUMIN 2.2 g/dL (3.5-5.0); CREATININE 0.7 mg/dL (0.5-1.5); PHOSPHORUS 2.9 mg/dL (2.5-4.9); POTASSIUM 3.1 mmol/L (3.5-5.1)
[2021-09-21 06:07] LABS: BILIRUBIN,TOTAL 0.5 mg/dL (0.2-1.0); MAGNESIUM 1.8 mg/dL (1.80-2.40); TOTAL PROTEIN, SERUM 5.2 g/dL (6.0-8.3)
[2021-09-21] MEDS: INSULIN LISPRO 100 UNIT/ML 3ML SQ SCH ×3 (06:43→16:30)
[2021-09-21] MEDS: CLOPIDOGREL 75MG TAB PO SCH (08:52)
[2021-09-21] MEDS: CILOSTAZOL 100 MG TAB PO SCH ×2 (08:52→22:54)
[2021-09-21] MEDS: MEMANTINE HCL 5 MG TABLET PO SCH ×2 (08:52→22:54)
[2021-09-21] MEDS: ASPIRIN 81 MG EC TAB PO SCH (08:52)
[2021-09-21] MEDS: LISINOPRIL 20 MG TABLET PO SCH (08:52)
[2021-09-21] MEDS: PANTOPRAZOLE 40 MG/VIAL IVP SCH ×2 (08:56→22:32)
[2021-09-21] MEDS: FLUCONAZOLE 400 MG/NS 200 ML 200 ML IV SCH (08:56)
[2021-09-21] MEDS ORDERED: KCL 20 MEQ ERTAB PO PRN (10:30)
[2021-09-21] MEDS: POTASSIUM CHLORIDE 10% ELIXIR 20 MEQ/15 ML UDCUP PO PRN ×3 (10:45→23:11)
[2021-09-21 16:00] VITALS: BP 118/71
[2021-09-21 19:35] VITALS: BP 150/55
[2021-09-21] MEDS: DONEPEZIL HCL 5 MG TAB PO SCH (22:55)
[2021-09-21] MEDS: CLONAZEPAM 0.5 MG TABLET PO SCH (22:59)
[2021-09-21 23:38] VITALS: BP 147/66
[2021-09-22] MEDS ORDERED: INSULIN LISPRO 100 UNIT/ML 3ML SQ SCH
[2021-09-22] MEDS: ZOSYN 3.375GM +NS 50ML IV SCH ×3 (00:43→17:00)
[2021-09-22] MEDS: MAGNESIUM 2GM PREMIX 50ML 50 ML IV PRN (00:44)
[2021-09-22 04:14] VITALS: BP 121/50
[2021-09-22] MEDS: METRONIDAZOLE 500MG/100ML BAG 100 ML IVPB SCH ×3 (06:00→22:03)
[2021-09-22] MEDS: LEVOTHYROXINE 88 MCG TABLET PO SCH (06:00)
[2021-09-22] MEDS: INSULIN LISPRO 100 UNIT/ML 3ML SQ SCH ×3 (06:00→18:00)
[2021-09-22] MEDS: 0.9%NACL 1000ML 1,000 ML IV SCH ×2 (06:01→19:32)
[2021-09-22] MEDS: IPRATROPIUM 0.5 MG/2.5 ML INH IH SCH ×4 (06:18→23:33)
[2021-09-22] MEDS: ACETYLCYSTEINE 10% 100MG/ML 4ML VIAL IH SCH ×4 (06:18→23:33)
[2021-09-22 06:24] LABS: EOSINOPHILS % (AUTO) 0.8 % (0.0-8.0); HEMATOCRIT 27.2 % (42-54); LYMPHOCYTES % (AUTO) 5.4 % (21.0-51.0); MEAN CORPUSCULAR HEMOGLOBIN 29.8 pg (27.0-33.0); MEAN CORPUSCULAR HGB CONC 33.1 g/dL (32.0-36.0); MEAN CORPUSCULAR VOLUME 90.1 fL (79-99); MONOCYTES % (AUTO) 5.6 % (3.0-13.0); NEUTROPHILS % (AUTO) 87.5 % (40.0-77.0); PLATELET COUNT (AUTO) 136 K/uL (130-400); RED BLOOD CELL COUNT(AUTO) 3.02 MIL/uL (4.50-6.20); RED CELL DISTRIBUTION WIDTH 13.2 % (11.0-15.5); WHITE BLOOD COUNT (AUTO) 9.6 K/uL (4.8-10.8)
[2021-09-22 06:32] LABS: ALBUMIN 2.1 g/dL (3.5-5.0); BILIRUBIN,TOTAL 0.4 mg/dL (0.2-1.0); CREATININE 0.7 mg/dL (0.5-1.5); MAGNESIUM 2.2 mg/dL (1.80-2.40); PHOSPHORUS 2.2 mg/dL (2.5-4.9); POTASSIUM 3.5 mmol/L (3.5-5.1); TOTAL PROTEIN, SERUM 5.3 g/dL (6.0-8.3)
[2021-09-22] MEDS: FLUCONAZOLE 400 MG/NS 200 ML 200 ML IV SCH (09:00)
[2021-09-22] MEDS: ASPIRIN 81 MG EC TAB PO SCH (09:01)
[2021-09-22] MEDS: LISINOPRIL 20 MG TABLET PO SCH (09:01)
[2021-09-22] MEDS: CLOPIDOGREL 75MG TAB PO SCH (09:02)
[2021-09-22] MEDS: CILOSTAZOL 100 MG TAB PO SCH ×2 (09:03→22:06)
[2021-09-22] MEDS: MEMANTINE HCL 5 MG TABLET PO SCH ×2 (09:04→22:07)
[2021-09-22] MEDS: PANTOPRAZOLE 40 MG/VIAL IVP SCH ×2 (09:04→22:03)
[2021-09-22 19:39] VITALS: BP 108/55
[2021-09-22] MEDS: POTASSIUM CHLORIDE 10% ELIXIR 20 MEQ/15 ML UDCUP PO PRN (22:04)
[2021-09-22] MEDS: DONEPEZIL HCL 5 MG TAB PO SCH (22:06)
[2021-09-22] MEDS: PSYLLIUM SEED 1 EACH PACKET PEG SCH (22:07)
[2021-09-22] MEDS: CLONAZEPAM 0.5 MG TABLET PO SCH (22:21)
[2021-09-22 23:30] VITALS: BP 112/58
[2021-09-23] MEDS: ZOSYN 3.375GM +NS 50ML IV SCH ×3 (00:29→17:45)
[2021-09-23] MEDS: POTASSIUM CHLORIDE 10% ELIXIR 20 MEQ/15 ML UDCUP PO PRN ×3 (00:30→14:41)
[2021-09-23 04:00] VITALS: BP 128/57
[2021-09-23 04:51] LABS: BASOPHILS % (AUTO) 0.1 % (0.0-5.0); EOSINOPHILS % (AUTO) 2.6 % (0.0-8.0); HEMATOCRIT 28.4 % (42-54); LYMPHOCYTES % (AUTO) 8.7 % (21.0-51.0); MEAN CORPUSCULAR HEMOGLOBIN 29.4 pg (27.0-33.0); MEAN CORPUSCULAR HGB CONC 32.4 g/dL (32.0-36.0); MEAN CORPUSCULAR VOLUME 90.7 fL (79-99); MONOCYTES % (AUTO) 7.1 % (3.0-13.0); PLATELET COUNT (AUTO) 146 K/uL (130-400); RED BLOOD CELL COUNT(AUTO) 3.13 MIL/uL (4.50-6.20); RED CELL DISTRIBUTION WIDTH 13.4 % (11.0-15.5); WHITE BLOOD COUNT (AUTO) 7.3 K/uL (4.8-10.8)
[2021-09-23 05:07] LABS: ALBUMIN 2.2 g/dL (3.5-5.0); BILIRUBIN,TOTAL 0.3 mg/dL (0.2-1.0); CREATININE 0.7 mg/dL (0.5-1.5); MAGNESIUM 2.1 mg/dL (1.80-2.40); PHOSPHORUS 2.3 mg/dL (2.5-4.9); POTASSIUM 3.6 mmol/L (3.5-5.1); TOTAL PROTEIN, SERUM 5.8 g/dL (6.0-8.3)
[2021-09-23] MEDS: METRONIDAZOLE 500MG/100ML BAG 100 ML IVPB SCH ×2 (05:40→13:41)
[2021-09-23] MEDS: INSULIN LISPRO 100 UNIT/ML 3ML SQ SCH ×4 (06:00→18:00)
[2021-09-23] MEDS: IPRATROPIUM 0.5 MG/2.5 ML INH IH SCH ×3 (06:22→18:46)
[2021-09-23] MEDS: ACETYLCYSTEINE 10% 100MG/ML 4ML VIAL IH SCH ×3 (06:22→18:46)
[2021-09-23] MEDS: LEVOTHYROXINE 88 MCG TABLET PO SCH (06:28)
[2021-09-23 08:03] VITALS: BP 106/62
[2021-09-23] MEDS: FLUCONAZOLE 400 MG/NS 200 ML 200 ML IV SCH (08:07)
[2021-09-23] MEDS: MEMANTINE HCL 5 MG TABLET PO SCH (08:08)
[2021-09-23] MEDS: CILOSTAZOL 100 MG TAB PO SCH (08:08)
[2021-09-23] MEDS: ASPIRIN 81 MG EC TAB PO SCH (08:08)
[2021-09-23] MEDS: PANTOPRAZOLE 40 MG/VIAL IVP SCH (08:08)
[2021-09-23] MEDS: PSYLLIUM SEED 1 EACH PACKET PEG SCH (08:08)
[2021-09-23] MEDS: CLOPIDOGREL 75MG TAB PO SCH (08:09)
[2021-09-23] MEDS: LISINOPRIL 20 MG TABLET PO SCH (08:09)
[2021-09-23 12:03] VITALS: BP 108/63
[2021-09-23] MEDS: 0.9%NACL 1000ML 1,000 ML IV SCH (15:32)
[2021-09-23 16:10] VITALS: BP 119/60
[2021-09-23 19:28] VITALS: BP 121/64
== END 2021-09-23 19:55 | DRG 329 ==
LOC: EDH 04:22 → OBSVTOIN 06:03 → UNDOADMOB 06:03 → EDHIP 06:03 → INTOOBSV 06:03 → 2DH 09-11 17:37 → EDHIP 09-11 17:37 → 3AH 09-15 15:39 → 2CH 09-17 17:23 → 3CH 09-19 16:04
PROVIDERS: ADMIT Internal Medicine; ATTEND Internal Medicine
PROC: 0W3P8ZZ Control Bleeding in Gastrointestinal Tract, Via Natural or Artificial Opening Endoscopic (ICD-10-PCS; 2021-09-12)
PROC: 30233N1 Transfusion of Nonautologous Red Blood Cells into Peripheral Vein, Percutaneous Approach (ICD-10-PCS; 2021-09-13)
PROC: 0DJ08ZZ Inspection of Upper Intestinal Tract, Via Natural or Artificial Opening Endoscopic (ICD-10-PCS; 2021-09-14)
PROC: 0DJD8ZZ Inspection of Lower Intestinal Tract, Via Natural or Artificial Opening Endoscopic (ICD-10-PCS; 2021-09-14)
PROC: 0DBF0ZZ Excision of Right Large Intestine, Open Approach (ICD-10-PCS; principal; 2021-09-18)
PROC: 0DTJ0ZZ Resection of Appendix, Open Approach (ICD-10-PCS; 2021-09-18)
PROC: 0DBL0ZZ Excision of Transverse Colon, Open Approach (ICD-10-PCS; 2021-09-18)
PROC: 0D1B0Z4 Bypass Ileum to Cutaneous, Open Approach (ICD-10-PCS; 2021-09-18)
PROC: 0TB00ZZ Excision of Right Kidney, Open Approach (ICD-10-PCS; 2021-09-18)
PROC: 0WUF0JZ Supplement Abdominal Wall with Synthetic Substitute, Open Approach (ICD-10-PCS; 2021-09-18)
DX: K55.9 Vascular disorder of intestine, unspecified (principal); K21.01 Gastro-esophageal reflux disease with esophagitis, with bleeding; K29.01 Acute gastritis with bleeding; E43 Unspecified severe protein-calorie malnutrition; D62 Acute posthemorrhagic anemia; E87.0 Hyperosmolality and hypernatremia; R18.8 Other ascites; Z20.822 Contact with and (suspected) exposure to COVID-19; D72.810 Lymphocytopenia; E87.5 Hyperkalemia; E83.51 Hypocalcemia; E88.09 Other disorders of plasma-protein metabolism, not elsewhere classified; I25.10 Atherosclerotic heart disease of native coronary artery without angina pectoris; R13.10 Dysphagia, unspecified; Z93.1 Gastrostomy status; I10 Essential (primary) hypertension; N28.1 Cyst of kidney, acquired; K66.0 Peritoneal adhesions (postprocedural) (postinfection); Z95.1 Presence of aortocoronary bypass graft; Z95.5 Presence of coronary angioplasty implant and graft; Z79.899 Other long term (current) drug therapy; Z86.73 Personal history of transient ischemic attack (TIA), and cerebral infarction without residual deficits; L89.329 Pressure ulcer of left buttock, unspecified stage; Z68.22 Body mass index [BMI] 22.0-22.9, adult; Z88.8 Allergy status to other drugs, medicaments and biological substances; E11.65 Type 2 diabetes mellitus with hyperglycemia; F03.90 Unspecified dementia, unspecified severity, without behavioral disturbance, psychotic disturbance, mood disturbance, and anxiety; D69.6 Thrombocytopenia, unspecified; Z79.82 Long term (current) use of aspirin; Z79.02 Long term (current) use of antithrombotics/antiplatelets; K42.9 Umbilical hernia without obstruction or gangrene
CPT/HCPCS: 36415; 36430; 43235; 43255; 45378; 71045; 74021; 74176; 74230; 76700; 80048; 80053; 82270; 82271; 82435; 82803; 82947; 82948; 83605; 83735; 83880; 84100; 84132; 84145; 84295; 84484; 85014; 85018; 85025; 85027; 85610; 85730; 86677; 86850; 86900; 86901; 86923; 87040; 87635; 92526; 92610; 92611; 93005; 94640; 94664; 97039; A4606; C9113; G0378; J0690; J1100; J1364; J1450; J2001; J2370; J2405; J2543; J2704; J2710; J2795; J3010; J3475; J3480; J3490; J7030; J7040; J7042; J7070; J7608; P9034